=== PATIENT | male | born 1985 | race Hispanic/Latino ===

== ENCOUNTER 2018-09-14 06:27 | Emergency (ER) | payer SELFPAY ==
[2018-09-14 07:35] LABS: Absolute Lymphocytes (CBC) 0.6 K/uL (0.7-4.9); Basophils % 0.3 % (0-1.3); Eosinophils % 0.3 % (0-4.4); Hematocrit 40.4 % (39.6-49.0); Lymphocytes % 12.3 % (15.3-44.8); MPV 10.1 fL (7.6-11.3); Monocytes % 8.3 % (3.3-12.3); RBC Red Blood Cell Count 4.59 M/uL (4.33-5.43)
[2018-09-14 08:05] LABS: Potassium 3.7 mmol/L (3.5-5.1); T3 Free 3.01 pg/mL (2.18-3.98); Thyroid Stimulating Hormone 3.55 uIU/mL (0.360-3.740)
--- NOTE | 2018-09-14 08:12 | ER ---
Nurse's Notes [facility] Name: Luis Garibay Age: 32 yrs Sex: Male : 1985 Arrival Date: 09/14/2018 Time: 06:35 Bed 20 Private MD: Diagnosis: Person with feared health complaint in whom no diagnosis is made Presentation: 09/14 06:23 Presenting complaint: EMS states: PT complains of having SOB , being dizzy and shaky jb4 upon arriving to work. 06:23 Transition of care: patient was not received from another setting of care. Onset of jb4 symptoms was September 14, 2018. Risk Assessment: Do you want to hurt yourself or someone else? Patient reports no desire to harm self or others. Initial Sepsis Screen: Does the patient meet any 2 criteria? No. Patient's initial sepsis screen is negative. Does the patient have a suspected source of infection? No. Patient's initial sepsis screen is negative. Care prior to arrival: None. 06:23 Method Of Arrival: EMS: [facility] 06:23 Acuity: FLORA 3 jb4 Triage Assessment: 06:43 General: Appears in no apparent distress. comfortable, Behavior is calm, cooperative, cc3 appropriate for age. Pain: Denies pain. Historical: - Allergies: 06:23 No Known Allergies; jb4 - Home Meds: 06:23 levothyroxine oral [Active]; jb4 - PMHx: 06:23 Hypothyroidism; jb4 - PSHx: 06:23 right leg; jb4 - Immunization history:: Adult Immunizations up to date. - Social history:: Smoking status: Patient/guardian denies using tobacco, Patient/guardian denies using alcohol. - Ebola Screening: : No symptoms or risks identified at this time. Screenin:43 Abuse screen: Denies threats or abuse. Denies injuries from another. Nutritional cc3 screening: No deficits noted. Tuberculosis screening: No symptoms or risk factors identified. Fall Risk Ambulatory Aid- None/Bed Rest/Nurse Assist (0 pts). Gait- Normal/Bed Rest/Wheelchair (0 pts) Mental Status- Oriented to own ability (0 pts). Assessment: 07:00 General: RECD REPORT FROM [facility] JOHNSON. 32YO HM P/W SOB. ALL CURRENT ORDERS COMPLETED, bp RAD RESULTS PENDING. Pain: Denies pain. Neuro: No deficits noted. Cardiovascular: No deficits noted. Respiratory: Airway is patent Respiratory effort is even, unlabored, Respiratory pattern is regular, symmetrical. GI: No signs and/or symptoms were reported involving the gastrointestinal system. : No signs and/or symptoms were reported regarding the genitourinary system. EENT: No deficits noted. Derm: No deficits noted. Musculoskeletal: No deficits noted. 08:37 Reassessment: PT D/C HOME AMBULATORY WITH FAMILY, DX WITH NO HEALTH CONCERN. bp Vital Signs: 06:23 BP 143 / 74; Pulse 65; Resp 16; Temp 98.2(TE); Pulse Ox 100% on R/A; Weight 81.65 kg jb4 (R); Height 5 ft. 7 in. (170.18 cm) (R); Pain 0/10; 06:45 BP 123 / 78 Supine; Pulse 65; Resp 16 S; Pulse Ox 100% on R/A; cc3 06:46 BP 141 / 87 Sitting; Pulse 63; Resp 16 S; Pulse Ox 100% on R/A; cc3 06:48 BP 144 / 89 Standing; Pulse 70; Resp 17 S; Pulse Ox 100% on R/A; cc3 07:12 BP 128 / 83; Pulse 66; Resp 22; Temp 97.7(TE); Pulse Ox 100% on R/A; mh5 08:37 BP 126 / 81; Pulse 65; Resp 16; Temp 98.5; Pulse Ox 100% ; bp 06:23 Body Mass Index 28.19 (81.65 kg, 170.18 cm) jb4 ED Course: 06:23 Arm band placed on left wrist. EKG completed in triage. Results shown to MD. jb4 06:35 Patient arrived in ED. jb4 06:36 Casey Blank PA is PHCP. cp 06:36 Tyrel Brito MD is Attending Physician. cp 06:38 Triage completed. jb4 06:43 Sera Leroy is Primary Nurse. cc3 06:43 Patient has correct armband on for positive identification. Placed in gown. Bed in low cc3 position. Call light in reach. Side rails up X 1. satellite project site monitor on. Pulse ox on. NIBP on. 06:54 Patient moved to radiology via wheelchair. ls3 06:57 XRAY Chest Pa And Lat (2 Views) In Process Unspecified. EDMS 07:00 Report given to ALEX Paige. cc3 07:02 X-ray completed. Patient tolerated procedure well. Patient moved back from radiology. 07:04 Royal Ramesh, RN is Primary Nurse. bp 07:28 Initial lab(s) drawn, by me, sent to lab. Inserted saline lock: 22 gauge in right mh5 antecubital area, using aseptic technique. Blood collected. 07:28 T3 Free Sent. mh5 07:28 TSH Sent. mh5 07:28 BMP Sent. mh5 07:28 CBC with Diff Sent. mh5 07:29 Warm blanket given. mh5 08:17 Darin Toney MD is Attending Physician. cp 08:38 No provider procedures requiring assistance completed. IV discontinued, intact, bp bleeding controlled, No redness/swelling at site. Pressure dressing applied. Administered Medications: No medications were administered Outcome: 08:11 Discharge ordered by MD. cp 08:38 Discharged to home ambulatory, with family. bp 08:38 Condition: stable 08:38 Discharge instructions given to patient, Instructed on discharge instructions, follow up and referral plans. Demonstrated understanding of instructions, follow-up care. 08:39 Patient left the ED. bp Signatures: Dispatcher [employer] EDMS Sophie Irby Casey Blank PA PA cp Bryson, James, RN RN Jacqueline Hylton [facility] Royal Ramesh, RN RN Sera Maravilla cc3 [place] ls3
--- NOTE | 2018-09-14 08:12 | EDPHYS ---
Physician Documentation [facility] Name: Luis Garibay Age: 32 yrs Sex: Male : 1985 Arrival Date: 09/14/2018 Time: 06:35 Bed 20 Private MD: ED Physician Darin Toney HPI: 09/14 06:40 This 32 yrs old Male presents to ER via EMS with complaints of shortness of cp breath. 06:40 The patient has shortness of breath at rest. Onset: The symptoms/episode began/occurred cp this morning. Duration: The symptoms single episode. Associated signs and symptoms: Pertinent positives: dizziness, shaking. Patient reports he drove to work this morning and while in parking lot started becoming short of breath, dizzy and began shaking all over. EMS was called and transported patient to ED. Historical: - Allergies: 06:23 No Known Allergies; jb4 - Home Meds: 06:23 levothyroxine oral [Active]; jb4 - PMHx: 06:23 Hypothyroidism; jb4 - PSHx: 06:23 right leg; jb4 - Immunization history:: Adult Immunizations up to date. - Social history:: Smoking status: Patient/guardian denies using tobacco, Patient/guardian denies using alcohol. - Ebola Screening: : No symptoms or risks identified at this time. ROS: 06:45 Eyes: Negative for injury, pain, redness, and discharge. cp 06:45 Constitutional: Negative for body aches, chills, fever, poor PO intake. 06:45 ENT: Negative for drainage from ear(s), ear pain, sore throat, difficulty swallowing, difficulty handling secretions. 06:45 Cardiovascular: Negative for chest pain, edema, palpitations. 06:45 Respiratory: Positive for shortness of breath, Negative for cough, wheezing. 06:45 Abdomen/GI: Negative for abdominal pain, nausea, vomiting, and diarrhea, constipation, black/tarry stool, rectal bleeding. 06:45 Back: Negative for pain at rest, pain with movement, radiated pain. 06:45 Skin: Negative for rash. 06:45 Neuro: Positive for dizziness, Negative for altered mental status, numbness, syncope, tremor, weakness. 06:45 All other systems are negative. Exam: 06:37 ECG was reviewed by the Attending Physician. cp 06:47 Head/Face: Normocephalic, atraumatic. cp 06:47 Constitutional: The patient appears in no acute distress, alert, awake, non-diaphoretic, non-toxic, well developed, well nourished. 06:47 Eyes: Periorbital structures: appear normal, Conjunctiva: normal, no exudate, no injection, Sclera: no appreciated abnormality, Lids and lashes: appear normal, bilaterally. 06:47 ENT: External ear(s): are unremarkable, Nose: is normal, Mouth: Lips: moist, Oral mucosa: pink and intact, moist, Posterior pharynx: is normal, airway is patent, no erythema, no exudate. 06:47 Chest/axilla: Inspection: normal, Palpation: is normal, no crepitus, no tenderness. 06:47 Cardiovascular: Rate: normal, Rhythm: regular, Heart sounds: murmur, not appreciated, rub, not appreciated, gallop, not appreciated, Edema: is not appreciated, JVD: is not appreciated. 06:47 Respiratory: the patient does not display signs of respiratory distress, Respirations: normal, no use of accessory muscles, labored breathing, is not present, Breath sounds: are clear throughout, no decreased breath sounds, no stridor, no wheezing. 06:47 Abdomen/GI: Exam negative for discomfort, distension, guarding, Inspection: abdomen appears normal. 06:47 Neuro: Orientation: to person, place \T\ time. Mentation: is normal, Cerebellar function: is grossly normal, Motor: moves all fours, strength is normal, Sensation: is normal. Vital Signs: 06:23 BP 143 / 74; Pulse 65; Resp 16; Temp 98.2(TE); Pulse Ox 100% on R/A; Weight 81.65 kg jb4 (R); Height 5 ft. 7 in. (170.18 cm) (R); Pain 0/10; 06:45 BP 123 / 78 Supine; Pulse 65; Resp 16 S; Pulse Ox 100% on R/A; cc3 06:46 BP 141 / 87 Sitting; Pulse 63; Resp 16 S; Pulse Ox 100% on R/A; cc3 06:48 BP 144 / 89 Standing; Pulse 70; Resp 17 S; Pulse Ox 100% on R/A; cc3 07:12 BP 128 / 83; Pulse 66; Resp 22; Temp 97.7(TE); Pulse Ox 100% on R/A; mh5 08:37 BP 126 / 81; Pulse 65; Resp 16; Temp 98.5; Pulse Ox 100% ; bp 06:23 Body Mass Index 28.19 (81.65 kg, 170.18 cm) jb4 MDM: 06:37 Patient medically screened. cp 07:00 Differential diagnosis: Anxiety Reaction electrolyte abnormality, illegal drug use, cp dehydration. 07:36 Test interpretation: by ED physician or midlevel provider: chest xray negative for cp infiltrates. 08:10 Data reviewed: vital signs, nurses notes, lab test result(s), EKG, radiologic studies, cp plain films, and as a result, I will discharge patient. 08:10 Counseling: I had a detailed discussion with the patient and/or guardian regarding: the cp historical points, exam findings, and any diagnostic results supporting the discharge/admit diagnosis, lab results, radiology results, to return to the emergency department if symptoms worsen or persist or if there are any questions or concerns that arise at home. 09/14 07:02 Order name: CBC with Diff; Complete Time: 07:43 cp 09/14 07:43 Interpretation: Normal except: AURORA% 78.8; LYM% 12.3; LYMA 0.6. cp 09/14 07:02 Order name: BMP; Complete Time: 08:08 cp 09/14 08:08 Interpretation: Normal except: CL 109; GFR 75. cp 09/14 06:37 Order name: EKG; Complete Time: 06:37 cp 09/14 06:37 Order name: XRAY Chest Pa And Lat (2 Views) cp 09/14 07:02 Order name: TSH; Complete Time: 08:08 cp 09/14 07:02 Order name: T3 Free; Complete Time: 08:08 cp 09/14 06:37 Order name: EKG - Nurse/Tech; Complete Time: 06:41 cp 09/14 06:40 Order name: Orthostatics; Complete Time: 06:50 cp EC:37 Rate is 59 beats/min. Rhythm is regular. [place] interval is normal. QRS interval is normal. cp QT interval is normal. Interpreted by me. Reviewed by me. Administered Medications: No medications were administered Disposition: 18:56 Co-signature as Attending Physician, Darin Toney MD Available for consultation at ps1 all times . Disposition: 09/14/18 08:11 Discharged to Home. Impression: Person with feared health complaint in whom no diagnosis is made. - Condition is Stable. - Medication Reconciliation Form, Thank You Letter, Antibiotic Education, Prescription Opioid Use, Work release form form. - Follow up: Private Physician; When: 1 - 2 days; Reason: Recheck today's complaints. - Problem is new. - Symptoms have improved. Signatures: Dispatcher [employer] EDMS Casye Blank PA PA cp Rolando Choi, RN RN jb4 Royal Ramesh RN RN bp Darin Toney MD MD ps1 Corrections: (The following items were deleted from the chart) 07:43 07:43 Normal except: AURORA% 78.8; LYM% 12.3. cp cp 08:39 08:11 09/14/2018 08:11 Discharged to Home. Impression: Person with feared health bp complaint in whom no diagnosis is made. Condition is Stable. Forms are Medication Reconciliation Form, Thank You Letter, Antibiotic Education, Prescription Opioid Use. Follow up: Private Physician; When: 1 - 2 days; Reason: Recheck today's complaints. Problem is new. Symptoms have improved. cp
--- NOTE | 2018-09-14 09:14 | RAD REPORT ---
EXAM DESCRIPTION: RAD - Chest Pa And Lat (2 Views) - 09/14/2018 6:59 am CLINICAL HISTORY: Shortness of breath COMPARISON: None. TECHNIQUE: PA and lateral views of the chest were obtained. FINDINGS: The lungs are clear. Heart size is normal and central vasculature is within normal limit s. No pleural effusion or pneumothorax seen. No acute bony finding noted. No aortic abnormality. IMPRESSION: No acute cardiopulmonary process.
--- NOTE | 2018-09-14 12:50 | EKG ---
Test Date: 2018-09-14 Test Time: 06:26:49 Apprentice Jockey: YAYA MEASUREMENT RESULTS: Intervals: Rate: 59 VT: 126 QRSD: 86 QT: 376 QTc: 372 [place]: P: 48 VT: 126 QRS: 50 T: 52 INTERPRETIVE STATEMENTS: Sinus bradycardia Otherwise normal ECG No previous ECG available for comparison Electronically Signed On 09-14-18 12:49:22 CDT by Linden Johansen
== END 2018-09-14 08:39 | disposition home or self-care (01) ==
LOC: ER 06:27
DX: R06.02 Shortness of breath (principal); E03.9 Hypothyroidism, unspecified; Z71.1 Person with feared health complaint in whom no diagnosis is made
CPT/HCPCS: 36415; 71046; 80048; 84443; 84481; 85025; 93005; 99284